=== PATIENT | male | born 1995 | race Two or more races ===

== ENCOUNTER 2023-07-16 22:06 | Emergency (ER) | payer OTHER ==
[~2023-07-16] VITALS: Ht 165.1 cm; Wt 77.2 kg
[2023-07-16 23:02] LABS: COVID19 ANTIGEN SOFIA FIA NEGATIVE (NEGATIVE); Rapid Influenza A Negative (Negative); Rapid Influenza B Negative (Negative)
[2023-07-17] MEDS ORDERED: ALBUTEROL SULF 2.5 MG/0.5ML(0.5%) NEB SOLN NEB ONE (00:30)
[2023-07-17] MEDS ORDERED: DexAMETHasone SOD PHOS 10MG/1ML VIAL INJ IM ONE (00:30)
[2023-07-17] MEDS ORDERED: IPRATROPIUM BROM 0.5 MG/2.5ML INH SOL NEB ONE (00:30)
[2023-07-17] MEDS ORDERED: AZIT-43 PO (04:26)
[2023-07-17] MEDS ORDERED: ALBUAER3 IN (04:26)
[2023-07-17] MEDS ORDERED: PRED20TA2 PO (04:26)
[2023-07-17 04:48] VITALS: BP 115/67; PULSE 78; RESP 18; TEMP 98; O2SAT 96
== END 2023-07-17 05:00 | disposition home or self-care (01) ==
LOC: ER 22:06
DX: J45.909 Unspecified asthma, uncomplicated (principal); Z20.822 Contact with and (suspected) exposure to COVID-19
CPT/HCPCS: 36415; 71045; 87426; 87804; 94640; 96372; 99284; J1100; J7644